=== PATIENT | male | born 1975 | race Hispanic/Latino ===

== ENCOUNTER 2019-10-04 17:26 | Emergency (ER) | payer MEDICAID | END 2019-10-04 18:41 | disposition home or self-care (01) | LOC: EDH 17:26 | DX: J20.9 Acute bronchitis, unspecified (principal); Z88.0 Allergy status to penicillin | CPT/HCPCS: 71046; 87804 ==

== ENCOUNTER 2021-10-01 17:03 | Emergency (ER) | payer MEDICAID ==
[~2021-10-01] VITALS: Ht 170.2 cm; Wt 65.8 kg
[2021-10-01 17:16] VITALS: BP 163/103
[2021-10-01 17:38] LABS: BASOPHILS % (AUTO) 1.7 % (0.0-5.0); EOSINOPHILS % (AUTO) 1.7 % (0.0-8.0); HEMATOCRIT 39.2 % (42-54); LYMPHOCYTES % (AUTO) 17.7 % (21.0-51.0); MEAN CORPUSCULAR HEMOGLOBIN 31.8 pg (27.0-33.0); MEAN CORPUSCULAR HGB CONC 34.2 g/dL (32.0-36.0); MEAN CORPUSCULAR VOLUME 93.1 fL (79-99); MONOCYTES % (AUTO) 11.2 % (3.0-13.0); NEUTROPHILS % (AUTO) 67.3 % (40.0-77.0); PLATELET COUNT (AUTO) 289 K/uL (130-400); RED BLOOD CELL COUNT(AUTO) 4.21 MIL/uL (4.50-6.20); RED CELL DISTRIBUTION WIDTH 13.2 % (11.0-15.5); WHITE BLOOD COUNT (AUTO) 4.6 K/uL (4.8-10.8)
[2021-10-01 17:53] LABS: CREATININE 0.8 mg/dL (0.5-1.5); POTASSIUM 3.6 mmol/L (3.5-5.1)
[2021-10-01 17:58] LABS: ALBUMIN 4.3 g/dL (3.5-5.0); BILIRUBIN,TOTAL 0.3 mg/dL (0.2-1.0); TOTAL PROTEIN, SERUM 8.4 g/dL (6.0-8.3)
[2021-10-01] MEDS ORDERED: ACET-66 PO (18:27)
== END 2021-10-01 18:37 | disposition home or self-care (01) ==
LOC: EDH 17:03
DX: S00.03XA Contusion of scalp, initial encounter (principal); S00.81XA Abrasion of other part of head, initial encounter; F10.20 Alcohol dependence, uncomplicated; W18.39XA Other fall on same level, initial encounter; Y93.89 Activity, other specified; Y92.89 Other specified places as the place of occurrence of the external cause; Y99.8 Other external cause status
CPT/HCPCS: 36415; 70450; 70486; 72125; 80053; 85025

== ENCOUNTER 2021-10-02 18:34 | Emergency (ER) | payer MEDICAID ==
[~2021-10-02] VITALS: Ht 165.1 cm; Wt 58.1 kg
[~2021-10-02 18:34] MED LIST: ACET-66 PO
[2021-10-02 20:03] VITALS: BP 135/70
== END 2021-10-02 20:06 | disposition home or self-care (01) ==
LOC: EDH 18:34
DX: S00.12XA Contusion of left eyelid and periocular area, initial encounter (principal); S00.83XA Contusion of other part of head, initial encounter; Z88.0 Allergy status to penicillin; W18.39XA Other fall on same level, initial encounter; Y93.89 Activity, other specified; Y92.89 Other specified places as the place of occurrence of the external cause; Y99.8 Other external cause status

== ENCOUNTER 2023-09-12 12:05 | Emergency (ER) | payer MEDICAID ==
[~2023-09-12] VITALS: Ht 165.1 cm; Wt 59.0 kg
[2023-09-12] MEDS ORDERED: ONDANSETRON 4MG INJ IVP ONE (14:30)
[2023-09-12 14:35] LABS: BASOPHILS # (AUTO) 0.03 K/uL (0.00-0.20); BASOPHILS % (AUTO) 0.4 % (0.0-5.0); HEMATOCRIT 41.6 % (42-54); IMMATURE GRANULOCYTE ABSOLUTE 0.03 K/uL (0-1); LYMPHOCYTES # (AUTO) 0.2 K/uL (1.0-4.8); LYMPHOCYTES % (AUTO) 2.6 % (21.0-51.0); MEAN CORPUSCULAR HEMOGLOBIN 31.2 pg (27.0-33.0); MEAN CORPUSCULAR HGB CONC 34.1 g/dL (32.0-36.0); MEAN CORPUSCULAR VOLUME 91.4 fL (79-99); MONOCYTES # (AUTO) 0.5 K/uL (0.1-1.0); MONOCYTES % (AUTO) 6.5 % (3.0-13.0); NEUTROPHILS # (AUTO) 6.9 K/uL (1.8-7.7); NEUTROPHILS % (AUTO) 90.1 % (40.0-77.0); PLATELET COUNT (AUTO) 273 K/uL (130-400); RED BLOOD CELL COUNT(AUTO) 4.55 MIL/uL (4.50-6.20); RED CELL DISTRIBUTION WIDTH 12.6 % (11.0-15.5); WHITE BLOOD COUNT (AUTO) 7.7 K/uL (4.8-10.8)
[2023-09-12 14:44] LABS: CARBON DIOXIDE 33 mmol/L (21-32); CHLORIDE 94 mmol/L (101-111); GLOMERULAR FILTR. RATE CALC 94 mL/min (>90); GLUCOSE,RANDOM 154 mg/dL (70-105); POTASSIUM 3.4 mmol/L (3.5-5.1); SODIUM SERUM 135 mmol/L (136-145); UREA NITROGEN, BLOOD 14 mg/dL (7-18)
[2023-09-12 14:48] LABS: ALANINE AMINOTRANSFERASE 84 U/L (12-78); ALBUMIN 4.6 g/dL (3.5-5.0); ALCOHOL, BLOOD < 3 mg/dL (0-10); ASPARTATE AMINOTRANSFERASE 70 U/L (10-37); BILIRUBIN,TOTAL 0.8 mg/dL (0.2-1.0); TOTAL PROTEIN, SERUM 9.3 g/dL (6.0-8.3)
[2023-09-12] MEDS ORDERED: KETOROLAC 15MG/ML VIAL (15MG/ML) IV ONE (15:30)
[2023-09-12] MEDS ORDERED: 0.9%NACL 1000ML 1,000 ML IV ONE (15:30)
[2023-09-12] MEDS ORDERED: FAMOTIDINE 20MG VIAL IV ONE (15:30)
[2023-09-12] MEDS ORDERED: PANTOPRAZOLE 40 MG/VIAL IVP ONE (15:30)
[2023-09-12] MEDS ORDERED: IOHEXOL-350 75 ML VIAL IV ONE (15:31)
[2023-09-12 16:23] LABS: APPEARANCE,URINE CLEAR (CLEAR); BILIRUBIN,URINE NEGATIVE (NEGATIVE); COLOR,URINE YELLOW (YELLOW); GLUCOSE, URINE (UA) NEGATIVE (NEGATIVE); KETONES,URINE 15 mg/dL (NEGATIVE); LEUKOCYTE ESTERASE ,URINE NEGATIVE Leu/uL (NEGATIVE); NITRATE,URINE NEGATIVE (NEGATIVE); OCCULT BLOOD,URINE TRACE-INTACT (NEGATIVE); PROTEIN,URINE 100 mg/dL (NEGATIVE); UROBILINOGEN,URINE 0.2 mg/dL (0.2-1.0)
[2023-09-12 16:27] LABS: ADD UA MICROSCOPIC YES
[2023-09-12 16:28] LABS: WBC,URINE 0-1 /HPF (0-1)
[2023-09-12 16:31] LABS: AMPHET/METH SCREEN,URINE NEGATIVE (NEGATIVE); BARBITURATE SCREEN, URINE NEGATIVE (NEGATIVE); BENZODIAZEPINES SCREEN,URINE NEGATIVE (NEGATIVE); CANNABINOID SCREEN,URINE NEGATIVE (NEGATIVE); COCAINE SCREEN,URINE NEGATIVE (NEGATIVE); OPIATE SCREEN,URINE NEGATIVE (NEGATIVE); PHENCYCLIDINE SCREEN,URINE NEGATIVE (NEGATIVE)
[2023-09-12] MEDS ORDERED: POTASSIUM BICARB/CIT AC 25 MEQ TABLET.EFF PO ONE (17:00)
[2023-09-12 17:21] VITALS: BP 126/78; PULSE 89; RESP 20; O2SAT 98
== END 2023-09-12 17:23 | disposition home or self-care (01) ==
LOC: EDH 12:05
DX: F10.20 Alcohol dependence, uncomplicated (principal); Y90.0 Blood alcohol level of less than 20 mg/100 ml; R10.12 Left upper quadrant pain; R10.13 Epigastric pain; R11.2 Nausea with vomiting, unspecified; Z88.0 Allergy status to penicillin
CPT/HCPCS: 99285; 74177; 96374; 96375; 96361; 80053; 80305; 82140; 83690; 85025; 81001; 36415; J7030; J2405; J1885; Q9967; S0028; S0164; C9113; J3490

== ENCOUNTER 2023-09-16 06:28 | Emergency (ER) | payer MEDICAID ==
[2023-09-16 07:55] LABS: BASOPHILS # (AUTO) 0.02 K/uL (0.00-0.20); BASOPHILS % (AUTO) 0.2 % (0.0-5.0); EOSINOPHILS # (AUTO) 0.01 K/uL (0.00-0.70); EOSINOPHILS % (AUTO) 0.1 % (0.0-8.0); IMMATURE GRANULOCYTE ABSOLUTE 0.05 K/uL (0-1); LYMPHOCYTES # (AUTO) 0.3 K/uL (1.0-4.8); LYMPHOCYTES % (AUTO) 2.3 % (21.0-51.0); MEAN CORPUSCULAR HGB CONC 35.3 g/dL (32.0-36.0); MEAN CORPUSCULAR VOLUME 90.7 fL (79-99); MONOCYTES # (AUTO) 1.1 K/uL (0.1-1.0); MONOCYTES % (AUTO) 8.8 % (3.0-13.0); NEUTROPHILS # (AUTO) 10.6 K/uL (1.8-7.7); NEUTROPHILS % (AUTO) 88.2 % (40.0-77.0); PLATELET COUNT (AUTO) 245 K/uL (130-400); RED BLOOD CELL COUNT(AUTO) 4.19 MIL/uL (4.50-6.20); RED CELL DISTRIBUTION WIDTH 12.4 % (11.0-15.5)
[2023-09-16 08:05] LABS: ALBUMIN 4.5 g/dL (3.5-5.0); CARBON DIOXIDE 29 mmol/L (21-32); CHLORIDE 95 mmol/L (101-111); CREATININE 1.4 mg/dL (0.5-1.5); GLOMERULAR FILTR. RATE CALC 63 mL/min (>90); GLUCOSE,RANDOM 80 mg/dL (70-105); SODIUM SERUM 133 mmol/L (136-145); UREA NITROGEN, BLOOD 29 mg/dL (7-18)
[2023-09-16 08:10] LABS: ALANINE AMINOTRANSFERASE 80 U/L (12-78); ASPARTATE AMINOTRANSFERASE 92 U/L (10-37); BILIRUBIN,TOTAL 1.2 mg/dL (0.2-1.0); TOTAL PROTEIN, SERUM 8.8 g/dL (6.0-8.3)
[2023-09-16 08:23] LABS: ALCOHOL, BLOOD < 3 mg/dL (0-10); POTASSIUM 2.7 mmol/L (3.5-5.1)
[2023-09-16 08:42] LABS: APPEARANCE,URINE CLOUDY (CLEAR); BILIRUBIN,URINE NEGATIVE (NEGATIVE); COLOR,URINE YELLOW (YELLOW); GLUCOSE, URINE (UA) NEGATIVE (NEGATIVE); KETONES,URINE 10 mg/dL (NEGATIVE); LEUKOCYTE ESTERASE ,URINE NEGATIVE Leu/uL (NEGATIVE); NITRATE,URINE NEGATIVE (NEGATIVE); OCCULT BLOOD,URINE SMALL (NEGATIVE); PROTEIN,URINE 70 mg/dL (NEGATIVE); UROBILINOGEN,URINE 0.2 mg/dL (0.2-1.0)
[2023-09-16 08:57] LABS: ADD UA MICROSCOPIC YES
[2023-09-16 08:58] LABS: MUCUS,URINE RARE LPF (None Seen); WBC,URINE 0-1 /HPF (0-1)
[2023-09-16] MEDS ORDERED: TETANUS/DIPHTHERIA TOXOID [ADULT] 0.5 ML VIAL IM ONE (09:00)
[2023-09-16] MEDS ORDERED: POTASSIUM BICARB/CIT AC 25 MEQ TABLET.EFF PO ONE (09:00)
[2023-09-16] MEDS ORDERED: LACTATED RINGERS 1000ML 1,000 ML IV ONE (09:00)
[2023-09-16 09:09] LABS: AMPHET/METH SCREEN,URINE NEGATIVE (NEGATIVE); BARBITURATE SCREEN, URINE NEGATIVE (NEGATIVE); BENZODIAZEPINES SCREEN,URINE NEGATIVE (NEGATIVE); CANNABINOID SCREEN,URINE NEGATIVE (NEGATIVE); COCAINE SCREEN,URINE NEGATIVE (NEGATIVE); OPIATE SCREEN,URINE NEGATIVE (NEGATIVE); PHENCYCLIDINE SCREEN,URINE NEGATIVE (NEGATIVE)
[2023-09-16] MEDS ORDERED: HYDROXYZINE 25 MG TABLET PO ONE (11:00)
[2023-09-16 11:02] LABS: CREATININE 1.2 mg/dL (0.5-1.5); POTASSIUM 3.4 mmol/L (3.5-5.1)
[2023-09-16] MEDS ORDERED: HYDR50CA50 PO (11:23)
[2023-09-16 11:41] VITALS: BP 127/77; PULSE 66; RESP 18; O2SAT 98
[2023-09-16] MEDS ORDERED: IBUP-2088 PO (20:52)
== END 2023-09-16 11:45 | disposition home or self-care (01) ==
LOC: EDH 06:28
DX: E87.6 Hypokalemia (principal); E86.0 Dehydration; R91.8 Other nonspecific abnormal finding of lung field; F10.20 Alcohol dependence, uncomplicated; Z88.0 Allergy status to penicillin
CPT/HCPCS: 99285; 99283; 70450; 96360; 71045; 83735; 80053; 80305; 85025; 36415; 90714; 73630; 72170; 72125; 90471; 80048; 81001; J7120

== ENCOUNTER 2023-09-16 19:30 | Emergency (ER) | payer MEDICAID ==
[~2023-09-16] VITALS: Ht 154.9 cm; Wt 56.7 kg
[~2023-09-16 19:30] MED LIST changes: +HYDR50CA50 PO
[2023-09-16 20:49] VITALS: BP 126/84; PULSE 78; RESP 16; O2SAT 100
[2023-09-16] MEDS ORDERED: IBUP-2088 PO (20:52)
== END 2023-09-16 20:57 | disposition home or self-care (01) ==
LOC: EDH 19:30
DX: S90.32XA Contusion of left foot, initial encounter (principal); F20.9 Schizophrenia, unspecified; F41.9 Anxiety disorder, unspecified; Z88.0 Allergy status to penicillin; W01.0XXA Fall on same level from slipping, tripping and stumbling without subsequent striking against object, initial encounter; Y93.89 Activity, other specified; Y92.89 Other specified places as the place of occurrence of the external cause; Y99.8 Other external cause status
CPT/HCPCS: 73630

== ENCOUNTER 2024-03-11 18:18 | Emergency (ER) | payer MEDICAID ==
[~2024-03-11] VITALS: Ht 162.6 cm; Wt 63.5 kg
[~2024-03-11 18:18] MED LIST changes: +IBUP-2088 PO
[2024-03-11 18:34] VITALS: BP 132/88; PULSE 90; RESP 18; O2SAT 98
[2024-03-11 18:43] LABS: APPEARANCE,URINE CLEAR (CLEAR); BILIRUBIN,URINE NEGATIVE (NEGATIVE); COLOR,URINE COLORLESS (YELLOW); GLUCOSE, URINE (UA) NEGATIVE (NEGATIVE); KETONES,URINE NEGATIVE (NEGATIVE); LEUKOCYTE ESTERASE ,URINE NEGATIVE Leu/uL (NEGATIVE); NITRATE,URINE NEGATIVE (NEGATIVE); OCCULT BLOOD,URINE NEGATIVE (NEGATIVE); PH,URINE 5.5 (5.0-8.0); PROTEIN,URINE NEGATIVE (NEGATIVE); UROBILINOGEN,URINE 0.2 mg/dL (0.2-1.0)
[2024-03-11 18:44] LABS: ADD UA MICROSCOPIC YES
[2024-03-11 18:45] LABS: WBC,URINE 0-1 /HPF (0-1)
[2024-03-11 18:51] LABS: AMPHET/METH SCREEN,URINE NEGATIVE (NEGATIVE); BARBITURATE SCREEN, URINE NEGATIVE (NEGATIVE); BENZODIAZEPINES SCREEN,URINE NEGATIVE (NEGATIVE); CANNABINOID SCREEN,URINE NEGATIVE (NEGATIVE); COCAINE SCREEN,URINE NEGATIVE (NEGATIVE); OPIATE SCREEN,URINE NEGATIVE (NEGATIVE); PHENCYCLIDINE SCREEN,URINE NEGATIVE (NEGATIVE)
[2024-03-11 18:52] LABS: BASOPHILS # (AUTO) 0.05 K/uL (0.00-0.20); BASOPHILS % (AUTO) 0.9 % (0.0-5.0); EOSINOPHILS # (AUTO) 0.39 K/uL (0.00-0.70); EOSINOPHILS % (AUTO) 6.7 % (0.0-8.0); HEMATOCRIT 41.7 % (42-54); IMMATURE GRANULOCYTE ABSOLUTE 0.01 K/uL (0-1); LYMPHOCYTES # (AUTO) 1.5 K/uL (1.0-4.8); LYMPHOCYTES % (AUTO) 26.5 % (21.0-51.0); MEAN CORPUSCULAR HGB CONC 35.5 g/dL (32.0-36.0); MEAN CORPUSCULAR VOLUME 84.6 fL (79-99); MONOCYTES # (AUTO) 0.5 K/uL (0.1-1.0); MONOCYTES % (AUTO) 7.9 % (3.0-13.0); NEUTROPHILS # (AUTO) 3.4 K/uL (1.8-7.7); NEUTROPHILS % (AUTO) 57.8 % (40.0-77.0); PLATELET COUNT (AUTO) 377 K/uL (130-400); RED BLOOD CELL COUNT(AUTO) 4.93 MIL/uL (4.50-6.20); RED CELL DISTRIBUTION WIDTH 12.5 % (11.0-15.5); WHITE BLOOD COUNT (AUTO) 5.8 K/uL (4.8-10.8)
[2024-03-11 19:06] LABS: CARBON DIOXIDE 32 mmol/L (21-32); CHLORIDE 101 mmol/L (101-111); CREATININE 0.8 mg/dL (0.5-1.3); GLOMERULAR FILTR. RATE CALC 110 mL/min (>90); GLUCOSE,RANDOM 123 mg/dL (70-105); POTASSIUM 3.7 mmol/L (3.5-5.1); SODIUM SERUM 141 mmol/L (136-145); UREA NITROGEN, BLOOD 8 mg/dL (7-18)
[2024-03-11 19:11] LABS: ACETAMINOPHEN < 1 mcg/mL (10-29); ALANINE AMINOTRANSFERASE 20 U/L (12-78); ALCOHOL, BLOOD 227 mg/dL (0-10); BILIRUBIN,TOTAL 0.2 mg/dL (0.2-1.0); SALICYLATE < 2.8 mg/dL (2.8-20.0); TOTAL PROTEIN, SERUM 8.4 g/dL (6.0-8.3)
[2024-03-11 19:36] LABS: ASPARTATE AMINOTRANSFERASE 17 U/L (10-37)
== END 2024-03-11 19:07 | disposition left against medical advice (07) ==
LOC: EDH 18:18
DX: F10.129 Alcohol abuse with intoxication, unspecified (principal); Z88.0 Allergy status to penicillin; Y90.7 Blood alcohol level of 200-239 mg/100 ml
CPT/HCPCS: 99281; 80053; 80305; 85025; 36415; 81001; G0481

== ENCOUNTER 2024-09-03 22:33 | Emergency (ER) | payer MEDICAID ==
[~2024-09-03] VITALS: Ht 165.1 cm; Wt 59.0 kg
--- NOTE | 2024-09-03 22:45 | NUR ---
PATIENT SENT FROM [facility] FOR MEDICAL CLEARANCE. PER [facility] THE PATIENT HAD JUST ARRIVED AT THEIR FACILITY AND WAS BEING SENT OVER DUE TO ALCOHOL INTOXICATION AND NEEDED MEDICAL CLEARANCE.
[2024-09-03 23:31] LABS: BASOPHILS # (AUTO) 0.04 K/uL (0.00-0.20); EOSINOPHILS # (AUTO) 0.21 K/uL (0.00-0.70); EOSINOPHILS % (AUTO) 5.2 % (0.0-8.0); HEMATOCRIT 43.1 % (42-54); IMMATURE GRANULOCYTE ABSOLUTE 0.01 K/uL (0-1); LYMPHOCYTES # (AUTO) 1.2 K/uL (1.0-4.8); LYMPHOCYTES % (AUTO) 30.8 % (21.0-51.0); MEAN CORPUSCULAR HEMOGLOBIN 29.9 pg (27.0-33.0); MEAN CORPUSCULAR HGB CONC 34.1 g/dL (32.0-36.0); MEAN CORPUSCULAR VOLUME 87.8 fL (79-99); MONOCYTES # (AUTO) 0.5 K/uL (0.1-1.0); MONOCYTES % (AUTO) 12.4 % (3.0-13.0); NEUTROPHILS % (AUTO) 50.4 % (40.0-77.0); PLATELET COUNT (AUTO) 292 K/uL (130-400); RED BLOOD CELL COUNT(AUTO) 4.91 MIL/uL (4.50-6.20); RED CELL DISTRIBUTION WIDTH 12.8 % (11.0-15.5)
[2024-09-04 00:01] LABS: CARBON DIOXIDE 29 mmol/L (21-32); CHLORIDE 97 mmol/L (101-111); GLOMERULAR FILTR. RATE CALC 93 mL/min (>90); GLUCOSE,RANDOM 148 mg/dL (70-105); POTASSIUM 3.3 mmol/L (3.5-5.1); SODIUM SERUM 136 mmol/L (136-145); UREA NITROGEN, BLOOD 5 mg/dL (7-18)
[2024-09-04 00:07] LABS: ALCOHOL, BLOOD 300 mg/dL (0-10); SALICYLATE < 2.8 mg/dL (2.8-20.0)
[2024-09-04 00:08] LABS: ACETAMINOPHEN < 1 mcg/mL (10-29)
--- NOTE | 2024-09-04 00:12 | NUR ---
SNACK GIVEN TO PATIENT
[2024-09-04 00:48] LABS: AMPHET/METH SCREEN,URINE NEGATIVE (NEGATIVE); BARBITURATE SCREEN, URINE NEGATIVE (NEGATIVE); BENZODIAZEPINES SCREEN,URINE NEGATIVE (NEGATIVE); CANNABINOID SCREEN,URINE NEGATIVE (NEGATIVE); COCAINE SCREEN,URINE NEGATIVE (NEGATIVE); OPIATE SCREEN,URINE NEGATIVE (NEGATIVE); PHENCYCLIDINE SCREEN,URINE NEGATIVE (NEGATIVE)
--- NOTE | 2024-09-04 00:51 | ERN ---
ED Note History of Present Illness Stated Complaint: MEDICAL CLEARANCE, HEARING VOICES Chief Complaint: Psych Evaluation Time Seen by MD: 00:27 Dictation: Mr. Sepulveda is a 48-year-old male who was brought into the emergency room for medical clearance for a behavioral health evaluation. Apparently patient started having auditory hallucinations and he started hearing foot steps chasing him. He could not sleep and he is also started hearing noises. He is a daily drinker and has a history of alcoholism and he was sent to ED for medical cl earance. Patient very intoxicated and lethargic most of the information has been obtained from nursing and EMS reports Temperature 98 pulse 105 respirations 20 blood pressure 145/81 with a pulse oximetry of 98% on room air Allergies: Coded Allergies: Penicillins (Unverified Allergy, Unknown, 10/02/21) Home Meds Active Scripts Ibuprofen (Motrin/Advil) 600 Mg Tab, 600 MG PO TIDP PRN for PAIN, #30 TAB Prov:BALBINA LAW MD 09/16/23 Hydroxyzine Pamoate (Hydroxyzine Pamoate) 50 Mg Capsule, 50 MG PO QIDP PRN for ANXIETY/AGITATION, #30 CAP 2 Refills Prov:ROSELYN BUTT Sr., MD 09/16/23 Acetaminophen (Tylenol) 500 Mg Tab, 500 MG PO Q6HPRN PRN for PAIN LEVEL 7 TO 10, #30 TAB Prov:JEOVANY BRADLEY MD 10/01/21 Past Medical History Past Medical History: No Pertinent History Surgical History: None Family History: Negative Social History: ETOH RN Note Reviewed/Agreed w/[facility]: Yes Review of System Dictation Unable to obtain as patient is very lethargic and sleeping Initial Vital Sign VS Vital Signs Date Time Temp Pulse Resp B/P (MAP) Pulse Ox O2 Delivery O2 Flow Rate FiO2 09/03/24 22:40 98.1 105 20 145/81 98 Room Air 0 09/03/24 22:46 21 Physical Exam Dictation General: Resting but arousable, NAD unkempt disheveled, alcohol breath Head/Face: Normocephalic, atraumatic Eyes: PERRL, EOMI, vision at baseline ENT: oral cavity clear, TMs clear, no signs of infection Neck: Trachea midline, supple, no nuchal rigidity Cardiovascular: RRR, normal S1/S2, No MRGs, no JVD Respiratory: CTAB, no respiratory distress, No rales or wheezes Abdomen: Soft, non-tender, non-distended, normal bowel sounds, no guarding or rebound. Skin: Warm, dry, normal turgor, no rash MS/Extremity: Pulses equal, no cyanosis, neurovascular intact, FROM Neuro: COAx4, GCS 15, strength 5/5, CN 2-12 intact, normal cerebellar exam, normal gait, Psych: Normal behavior, mood, and affect normal Extremities-trace edema without any palpable cords, Homans sign is negative Results (Laboratory/Radiology) Laboratory/Radiology Laboratory Tests Test 09/03/24 23:22 09/04/24 00:07 09/04/24 08:11 White Blood Count 4.0 K/uL (4.8-10.8) L Red Blood Count 4.91 MIL/uL (4.50-6.20) Hemoglobin 14.7 g/dL (14.0-18.0) Hematocrit 43.1 % (42-54) Mean Corpuscular Volume 87.8 fL (79-99) Mean Corpuscular Hemoglobin 29.9 pg (27.0-33.0) Mean Corpuscular Hemoglobin Concent 34.1 g/dL (32.0-36.0) Red Cell Distribution Width 12.8 % (11.0-15.5) Platelet Count 292 K/uL (130-400) Mean Platelet Volume 8.3 fL (7.5-10.5) Immature Granulocyte % (Auto) 0.2 % (0-1) Neutrophils (%) (Auto) 50.4 % (40.0-77.0) Lymphocytes (%) (Auto) 30.8 % (21.0-51.0) Monocytes (%) (Auto) 12.4 % (3.0-13.0) Eosinophils (%) (Auto) 5.2 % (0.0-8.0) Basophils (%) (Auto) 1.0 % (0.0-5.0) Neutrophils # (Auto) 2.0 K/uL (1.8-7.7) Lymphocytes # (Auto) 1.2 K/uL (1.0-4.8) Monocytes # (Auto) 0.5 K/uL (0.1-1.0) Eosinophils # (Auto) 0.21 K/uL (0.00-0.70) Basophils # (Auto) 0.04 K/uL (0.00-0.20) Absolute Immature Granulocyte (auto 0.01 K/uL (0-1) Nucleated Red Blood Cells 0.0 % (0.0-0.19) Sodium Level 136 mmol/L (136-145) Potassium Level 3.3 mmol/L (3.5-5.1) L Chloride Level 97 mmol/L (101-111) L Carbon Dioxide Level 29 mmol/L (21-32) Blood Urea Nitrogen 5 mg/dL (7-18) L Creatinine 1.0 mg/dL (0.5-1.3) Glomerular Filtration Rate Calc 93 mL/min (>90) Random Glucose 148 mg/dL (70-105) H Total Calcium 9.3 mg/dL (8.5-10.1) Salicylates Level < 2.8 mg/dL (2.8-20.0) L Acetaminophen Level < 1 mcg/mL (10-29) L Serum Alcohol 300 mg/dL (0-10) H 70 mg/dL (0-10) H Urine Opiates Screen NEGATIVE (NEGATIVE) Urine Barbiturates Screen NEGATIVE (NEGATIVE) Urine Phencyclidine Screen NEGATIVE (NEGATIVE) Urine Amphetamines Screen NEGATIVE (NEGATIVE) Urine Benzodiazepines Screen NEGATIVE (NEGATIVE) Urine Cocaine Screen NEGATIVE (NEGATIVE) Urine Marijuana (THC) Screen NEGATIVE (NEGATIVE) Labs Reviewed?: Yes ED Course ED Course Orders Procedure Category Date Status Time Vital Signs Per CPOE 09/03/24 Transmitted Routine 22:52 Cardiac Monitoring CPOE 09/03/24 Transmitted 22:52 Pulse Ox(Continuous) RT 09/03/24 Transmitted 22:52 Bedside Glucose CPOE 09/03/24 Transmitted Fingerstick 22:52 Suicide Precautions CPOE 09/03/24 Transmitted 22:52 Cath If Unable To CPOE 09/03/24 Transmitted Void In 6hr 22:52 Saline Lock Iv CPOE 09/03/24 Transmitted 22:52 Cbc With Differential LAB 09/03/24 Complete 22:52 Alcohol, Blood LAB 09/03/24 Complete 22:52 Salicylate LAB 09/03/24 Complete 22:52 Acetaminophen LAB 09/03/24 Complete 22:52 Basic Metabolic Panel LAB 09/03/24 Complete 22:52 Drug Screen Urine LAB 10/14/24 Complete 22:52 M.V.I. Iv [Adult] PHA 09/04/24 Complete (M.V.I. Iv [Adult])... 00:30 Regular DIET 09/04/24 Complete Breakfast Alcohol, Blood LAB 09/04/24 Complete 07:20 Regular DIET 09/04/24 Transmitted Lunch Current Medications Medications (Trade) Dose Ordered Sig/J Luis Route PRN Reason Start Time Stop Time Status Last Admin Dose Admin Multivitamins/ Minerals 10 ml/ Folic Acid 1 mg/ Thiamine HCl 100 mg/Sodium Chloride 1,010 ml @ 0 mls/hr ONCE ONCE IV 09/04/24 00:30 09/04/24 00:35 DC 09/04/24 01:18 Vital Signs Date Time Temp Pulse Resp B/P (MAP) Pulse Ox O2 Delivery O2 Flow Rate FiO2 09/04/24 05:19 97.9 88 16 132/78 97 Room Air* 0 21 09/04/24 01:00 98.1 92 18 138/82 98 Room Air* 0 21 09/03/24 22:46 98.1 105 20 145/81 98 Room Air* 0 21 09/03/24 22:40 98.1 105 20 145/81 98 Room Air 0 We will perform diagnostic labs, and administer medications according to the patient's complaint. Once the results are available, will review and personally interpreted the labs to rule out any acute life-threatening emergency the trach require immediate intervention and treatment. I will then re-evaluate the patient after treatment and diagnostic exams have return to determine whether the patient requires any further testing, can safely be discharged home or need further admission to hospital for additional treatment and evaluation. Labs reviewed CBC showed a white count of 4000, BNP 7 showed a potassium of 3.3. Urine drug screen is negative serum tox levels showed an alcohol -300. Banana bag and fluids requested. Once the alcohol clears from his system and the repeat levels trend down, we will evaluate him medically Medical Decision Making MDM MDM: Differential diagnosis: Alcohol abuse, insomnia, hallucinations Previous outside records reviewed: Old ER visits. Need for hospitalization: Patient does not meet criteria for hospitalization. Need for emergency major/minor surgery: No Patient's prior external medical records from other ER visits were reviewed by me as indicated. Prior testing and results from previous visits were reviewed. Prior tests were taken into account with medical decision making and resource utilization, independent historian/historians were used to obtain complete medical history. I independently interpreted the test that were performed, results were reviewed by me and considered findings on radiology if ordered. Medical management and examination interpretation discussions were had by me with other qualified healthcare professionals as indicated for the patient's care. 1225- patient does not meet inpatient psychiatric criteria. Patient will be discharged Problem List Problem List: (1) Alcoholic psychosis (2) Alcohol intoxication (3) Alcohol dependence DX & DISP Disposition: Discharge Departure Impression: Primary Impression: Alcohol dependence Additional Impressions: Alcohol intoxication, Hypokalemia, Alcoholic psychosis Condition: Stable Referrals: ANGELES SIMMONS MD (PCP) Time of Disposition: 12:39 I have reviewed, & agreed with my scribe's, documentation. (Entered by Amy laughlin, acting as a scribe for Dr. Keller) I personally scribed for VIVI MCKOY MD ([email or web address]) on 09/04/24 at 12:29. Electronically submitted by Amy Hawkins ([email or web address]). VIVI MCKOY MD Sep 04, 2024 00:51 ADONAY KELLER MD Sep 04, 2024 12:40
[2024-09-04] MEDS: M.V.I. IV [ADULT] 10 ML, FOLic ACID 5 MG/ML VIAL 1 MG, THIAMINE HCL 100 MG in 0.9%NACL ... IV ONE (01:18)
[2024-09-04 05:19] VITALS: BP 132/78; PULSE 88; RESP 16; TEMP 97.8; O2SAT 97
--- NOTE | 2024-09-04 09:24 | NUR ---
PT MEDICAL CLEARANCE AT THIS TIME, CALLED PLACED TO [facility] FOR SCREENING, SPOKE TO MADHURI.
== END 2024-09-04 13:10 | disposition home or self-care (01) ==
LOC: EDH 22:33
DX: F10.959 Alcohol use, unspecified with alcohol-induced psychotic disorder, unspecified (principal); E87.6 Hypokalemia; Z88.0 Allergy status to penicillin; Y90.3 Blood alcohol level of 60-79 mg/100 ml
CPT/HCPCS: 99284; 80048; 80305; 85025; 36415 ×2; 96365; G0481; J7030; J3411; J3490

== ENCOUNTER 2024-12-17 19:48 | Emergency (ER) | payer MEDICAID ==
[~2024-12-17] VITALS: Ht 165.1 cm; Wt 59.0 kg
[2024-12-17 19:50] VITALS: BP 164/89; PULSE 73; RESP 16; TEMP 98.1
--- NOTE | 2024-12-17 20:25 | ERN ---
General Chief Complaint: Abdominal Pain Stated Complaint: ABDOMINAL PAIN LLQ SINCE 2 PM Time Seen by MD: 19:54 Source: patient History of Present Illness Initial Comments Patient is a 48-year-old male coming in with lower left quadrant pain. Per patient the pain began earlier today. He states that the pain is 8/10 intensity and sharp without radiation. He states he was never had pain like this before he also states he has no past medical history. Allergies: Coded Allergies: Penicillins (Unverified Allergy, Unknown, 10/02/21) Home Meds Active Scripts Lactobacillus Acidophilus (Acidophilus Probiotic) 500 Million Cell Capsule, 1 CAP PO BID for 7 Days, #14 CAP 0 Refills Prov:MARY TODD MD 12/17/24 Pantoprazole Sodium (Protonix) 40 Mg Ectab, 1 TAB PO DAILY for 30 Days, #30 TAB 0 Refills Prov:MARY TODD MD 12/17/24 Ibuprofen (Motrin/Advil) 600 Mg Tab, 600 MG PO TIDP PRN for PAIN, #30 TAB Prov:BALBINA LAW MD 09/16/23 Hydroxyzine Pamoate (Hydroxyzine Pamoate) 50 Mg Capsule, 50 MG PO QIDP PRN for ANXIETY/AGITATION, #30 CAP 2 Refills Prov:ROSELYN BUTT Sr., MD 09/16/23 Acetaminophen (Tylenol) 500 Mg Tab, 500 MG PO Q6HPRN PRN for PAIN LEVEL 7 TO 10, #30 TAB Prov:JEOVANY BRADLEY MD 10/01/21 Past Medical History Past Medical History: No Pertinent History Past Surgical History: None Family History Family History: Negative Social History Social History: ETOH ROS Dictation CONSTITUTIONAL: No chills, no fever, no weakness, no diaphoresis, no malaise. HEAD/FACE: No signs of trauma. EENT: No eye pain, no blurred vision, no tearing, no double vision, no ear pain, no ear discharge, no nose pain, no nasal congestion, no throat pain, no throat swelling, no mouth pain. RESPIRATORY: No cough, no orthopnea, no SOB, no stridor, no wheezing. CARDIOVASCULAR: No chest pain, no edema, no palpitations, no syncope. GASTROINTESTINAL/ABDOMINAL: abdominal pain, no constipation, no diarrhea, no nausea, no vomiting. GENITOURINARY: No abnormal discharge, no dysuria, no frequent urination, no hematuria. No complaints of pain in the genitals. MUSCULOSKELETAL: No back pain, no gout, no joint pain, no joint swelling, no muscle pain, no muscle stiffness, no neck pain. INTEGUMENTARY: No change in color, no change in hair/nails, no dryness, no lesion, no lumps, no rash. NEUROLOGICAL/PSYCH: No anxiety, not depressed, no emotional problem, no headache, no numbness, no pre-existing deficit, no history of seizures, no tremors, no weakness. HEMATOLOGIC/LYMPHATIC: Not anemic, no history of blood clots, no apparent bleeding, no bruising, glands not swollen. All Systems Negative, Except as Noted. Physical Exam Physical Exam Dictation VITAL SIGNS: Reviewed. GENERAL APPEARANCE: Alert, oriented x3, no acute distress, obese. HEAD AND FACE: Non-traumatic. EYES: PERRL, pink conjunctivas, eyelid no trauma, anterior chamber clear. EARS: Pinnas intact and no signs of trauma or erythema. Ear canals clear and no discharge. TMs no erythema. NOSE: No discharge, no bleeding. OROPHARYNX: Mouth normal, teeth no caries, tongue pink. Pharynx clear, no erythema. Tonsils no exudates, no abscesses noted. Mucous membrane moist. NECK: Supple, non-tender, no thyromegaly, no masses, no JVD, no bruits. BREAST: Deferred. CHEST: No tenderness, no crepitus, no paradoxical movement, no retractions. LUNGS: Clear, well-ventilated, symmetric, no rales, no wheezing, no rhonchi, no stridor, good breath sounds bilaterally. HEART: Regular rate, regular rhythm, no murmur, no gallops. VASCULAR: No peripheral edema. ABDOMEN: Soft, positive bowel sounds, nondistended, no guarding, left lower quadrant tender, no rebound, no masses no hepatomegaly, no splenomegaly, no Gary's sign, no hernias. RECTAL: Deferred. GENITAL: Deferred. NEUROLOGICAL: Normal speech, gross motor function intact, gross sensory function intact. MUSCULOSKELETAL: Neck nontender, full range of motion, back nontender, full range of motion. EXTREMITIES: Nontender, full range of motion. SKIN: Color pink, dry, no turgor, no rash, no lacerations, no abrasions, no contusions. LYMPHATICS: Deferred. Results Laboratory and Microbiology Lab and Micro Result Laboratory Tests Test 12/17/24 20:24 White Blood Count 3.5 K/uL (4.8-10.8) L Red Blood Count 4.36 MIL/uL (4.50-6.20) L Hemoglobin 13.4 g/dL (14.0-18.0) L Hematocrit 38.4 % (42-54) L Mean Corpuscular Volume 88.1 fL (79-99) Mean Corpuscular Hemoglobin 30.7 pg (27.0-33.0) Mean Corpuscular Hemoglobin Concent 34.9 g/dL (32.0-36.0) Red Cell Distribution Width 13.5 % (11.0-15.5) Platelet Count 222 K/uL (130-400) Mean Platelet Volume 8.5 fL (7.5-10.5) Immature Granulocyte % (Auto) 0.3 % (0-1) Neutrophils (%) (Auto) 77.9 % (40.0-77.0) H Lymphocytes (%) (Auto) 8.0 % (21.0-51.0) L Monocytes (%) (Auto) 12.9 % (3.0-13.0) Eosinophils (%) (Auto) 0.3 % (0.0-8.0) Basophils (%) (Auto) 0.6 % (0.0-5.0) Neutrophils # (Auto) 2.7 K/uL (1.8-7.7) Lymphocytes # (Auto) 0.3 K/uL (1.0-4.8) L Monocytes # (Auto) 0.5 K/uL (0.1-1.0) Eosinophils # (Auto) 0.01 K/uL (0.00-0.70) Basophils # (Auto) 0.02 K/uL (0.00-0.20) Absolute Immature Granulocyte (auto 0.01 K/uL (0-1) Nucleated Red Blood Cells 0.0 % (0.0-0.19) White Cell Morphology Comment See comments Sodium Level 134 mmol/L (136-145) L Potassium Level 3.5 mmol/L (3.5-5.1) Chloride Level 96 mmol/L (101-111) L Carbon Dioxide Level 28 mmol/L (21-32) Blood Urea Nitrogen 11 mg/dL (7-18) Creatinine 0.8 mg/dL (0.5-1.3) Glomerular Filtration Rate Calc 110 mL/min (>90) Random Glucose 103 mg/dL (70-105) Total Calcium 8.9 mg/dL (8.5-10.1) Labs Reviewed?: Yes EKG/XRAY/US/CT/MRI CT Scan Comment [facility] [address] [place] [address] IMAGING REPORT Signed PATIENT: HOOD COOK MR#: [id number] : 1975 SEX: M AGE: 48 LOCATION: ED ORDER 15 STATUS: REG ER REPORT#: [id number] SERVICE 14 REASON: ABD PAIN ORDERING PHYSICIAN: MARY TODD MD PROCEDURE: ABD PEL WO - CT ABDOMEN/PELVIS W/O CONTRAST CT ABDOMEN/PELVIS W/O CONTRAST INDICATION: ABD PAIN TECHNIQUE: CT ABDOMEN/PELVIS W/O CONTRAST. Oral contrast was not given. Coronal and sagittal reformats were performed. CT was performed with one or more of the following dose reduction techniques: Automated exposure control, adjustment of the mA and/or kV according to the patient's size, or use of the iterative reconstruction technique. Comparison: 09/12/2023 FINDINGS: The noncontrast nature this study limits evaluation of abdominal viscera. No pulmonary consolidation or pleural effusion is seen. There is hepatic steatosis. No calcified gallstone is seen. There is a small hiatal hernia. The spleen, pancreas, and adrenal glands are within normal limits. No hydronephrosis. The urinary bladder is partially collapsed. Questionable scattered punctate intrarenal calculi. Reproductive organs are grossly within normal limits for patient's age. Fluid-filled loops of small bowel and colon suggesting enterocolitis in the proper clinical setting. Scattered diverticulosis coli without evidence of acute diverticulitis. No bowel obstruction is seen. Appendix is normal in caliber. Visualized aorta is normal in caliber. No acute osseous findings. IMPRESSION: 1. Fluid-filled loops of small bowel and colon suggesting enterocolitis in the proper clinical setting. 2. Scattered diverticulosis coli without evidence of acute diverticulitis. No bowel obstruction is seen. DICTATED BY: CHRISTINA COWART MD DATE: 12/17/242113 ELECTRONICALLY SIGNED BY: CHRISTINA COWART MD DATE: 12/17/242117 [facility] MDM: Differential diagnosis: Gastroenteritis, abdominal discomfort, Patient is a 48-year-old male coming in to be evaluated for left lower quadrant pain. CT of the abdomen did not disclose acute findings. Laboratory workup negative for acute findings. Only findings per imaging study was a fluid-filled colon suggestive of gastroenteritis. I have advised patient diet modification and I will prescribe him some symptomatic medication for abdominal discomfort. ED Course Orders Procedure Category Date Status Time Cbc With Differential LAB 12/17/24 Complete 20:15 Urinalysis Profile LAB 12/17/24 Logged 20:15 Lactated Ringers PHA 12/17/24 Complete 1000ml (Lactated 20:30 Pantoprazole 40mg Inj PHA 12/17/24 Complete (Protonix 40mg Inj 20:30 Ct Abdomen/Pelvis W/O CT 12/17/24 Resulted Contrast 20:15 Basic Metabolic Panel LAB 12/17/24 Complete 20:15 Current Medications Medications (Trade) Dose Ordered Sig/J Luis Route PRN Reason Start Time Stop Time Status Last Admin Dose Admin Lactated Ringer's 1,000 ml @ 0 mls/hr ONCE ONCE IV 12/17/24 20:30 12/17/24 20:31 DC Pantoprazole Sodium (PROTonix 40MG INJ) 40 mg ONCE ONCE IVP 12/17/24 20:30 12/17/24 20:31 DC Vital Signs Date Time Temp Pulse Resp B/P (MAP) Pulse Ox O2 Delivery O2 Flow Rate FiO2 12/17/24 19:50 98.1 73 16 164/89 99 Room Air 0 DX & DISP Disposition: Discharge Departure Impression: Primary Impression: Viral gastroenteritis Condition: Stable Scripts Lactobacillus Acidophilus (Acidophilus Probiotic) 500 Million Cell Capsule 1 CAP PO BID for 7 Days, #14 CAP 0 Refills Prov: MARY TODD MD 12/17/24 Pantoprazole Sodium (Protonix) 40 Mg Ectab 1 TAB PO DAILY for 30 Days, #30 TAB 0 Refills Prov: MARY TODD MD 12/17/24 Additional Instructions: FOLLOW-UP WITH PRIMARY CARE PROVIDER IN 1 TO 2 DAYS. TAKE MEDICATIONS DIRECTED HERE IN THE EMERGENCY ROOM. OKAY TO CONTINUE HOME MEDICATIONS UNLESS OTHERWISE DISCUSSED DURING YOUR VISIT IN THE EMERGENCY ROOM TODAY. RETURN TO YOUR NEAREST EMERGENCY ROOM IF SYMPTOMS WORSEN OR IF THERE IS NO IMPROVEMENT. CALL 911 IF YOU NEED IMMEDIATE ASSISTANCE. TAKE TYLENOL [id number] NEEDED AND IF NO CONTRAINDICATIONS ARE PRESENT. INCREASE ORAL HYDRATION. A WOUND CULTURE OR URINE CULTURE WAS ORDERED HERE IN THE EMERGENCY ROOM DEPARTMENT PLEASE FOLLOW-UP WITH PRIMARY CARE PROVIDER AND ADVISE THEM TO GET REPEAT PORTS FROM OUR FACILITY. IF YOU HAD ANY CARLITOS WRAP/SPLINTS THAT WERE APPLIED HERE, PLEASE DO NOT REMOVE THEM UNTIL YOU SEE YOUR PRIMARY CARE OR SPECIALTY. Referrals: Referrals: ANGELES SIMMONS MD (PCP) Time of Disposition: 21:47 MARY TODD MD Dec 17, 2024 20:24
[2024-12-17] MEDS ORDERED: LACTATED RINGERS 1000ML 1,000 ML IV ONE (20:30)
[2024-12-17] MEDS ORDERED: PANTOPrazole 40 MG/VIAL IVP ONE (20:30)
[2024-12-17 20:31] LABS: BASOPHILS # (AUTO) 0.02 K/uL (0.00-0.20); BASOPHILS % (AUTO) 0.6 % (0.0-5.0); EOSINOPHILS # (AUTO) 0.01 K/uL (0.00-0.70); EOSINOPHILS % (AUTO) 0.3 % (0.0-8.0); HEMATOCRIT 38.4 % (42-54); IMMATURE GRANULOCYTE ABSOLUTE 0.01 K/uL (0-1); LYMPHOCYTES # (AUTO) 0.3 K/uL (1.0-4.8); MEAN CORPUSCULAR HEMOGLOBIN 30.7 pg (27.0-33.0); MEAN CORPUSCULAR HGB CONC 34.9 g/dL (32.0-36.0); MEAN CORPUSCULAR VOLUME 88.1 fL (79-99); MONOCYTES # (AUTO) 0.5 K/uL (0.1-1.0); MONOCYTES % (AUTO) 12.9 % (3.0-13.0); NEUTROPHILS # (AUTO) 2.7 K/uL (1.8-7.7); NEUTROPHILS % (AUTO) 77.9 % (40.0-77.0); PLATELET COUNT (AUTO) 222 K/uL (130-400); RED BLOOD CELL COUNT(AUTO) 4.36 MIL/uL (4.50-6.20); RED CELL DISTRIBUTION WIDTH 13.5 % (11.0-15.5); WHITE BLOOD COUNT (AUTO) 3.5 K/uL (4.8-10.8)
[2024-12-17 20:39] LABS: CREATININE 0.8 mg/dL (0.5-1.3); POTASSIUM 3.5 mmol/L (3.5-5.1)
--- NOTE | 2024-12-17 21:18 | HMCIMG ---
CT ABDOMEN/PELVIS W/O CONTRAST INDICATION: ABD PAIN TECHNIQUE: CT ABDOMEN/PELVIS W/O CONTRAST. Oral contrast was not given. Coronal and sagittal reformats were performed. CT was performed with one or more of the following dose reduction techniques: Automated exposure control, adjustment of the mA and/or kV according to the patient's size, or use of the iterative reconstruction technique. Comparison: 09/12/2023 FINDINGS: The noncontrast nature this study limits evaluation of abdominal viscera. No pulmonary consolidation or pleural effusion is seen. There is hepatic steatosis. No calcified gallstone is seen. There is a small hiatal hernia. The spleen, pancreas, and adrenal glands are within normal limits. No hydronephrosis. The urinary bladder is partially collapsed. Questionable scattered punctate intrarenal calculi. Reproductive organs are grossly within normal limits for patient's age. Fluid-filled loops of small bowel and colon suggesting enterocolitis in the proper clinical setting. Scattered diverticulosis coli without evidence of acute diverticulitis. No bowel obstruction is seen. Appendix is normal in caliber. Visualized aorta is normal in caliber. No acute osseous findings. IMPRESSION: 1. Fluid-filled loops of small bowel and colon suggesting enterocolitis in the proper clinical setting. 2. Scattered diverticulosis coli without evidence of acute diverticulitis. No bowel obstruction is seen.
[2024-12-17] MEDS ORDERED: LACT-356 PO (21:48)
[2024-12-17] MEDS ORDERED: PANT40TA55 PO (21:48)
== END 2024-12-17 22:00 | disposition home or self-care (01) ==
LOC: EDH 19:48
DX: A08.4 Viral intestinal infection, unspecified (principal); K57.30 Diverticulosis of large intestine without perforation or abscess without bleeding; Z79.899 Other long term (current) drug therapy; Z88.0 Allergy status to penicillin
CPT/HCPCS: 36415; 74176; 80048; 85025; 99284

== ENCOUNTER 2025-06-10 16:29 | Emergency (ER) | payer SELFPAY ==
[~2025-06-10] VITALS: Ht 165.1 cm; Wt 58.5 kg
[~2025-06-10 16:29] MED LIST changes: +LACT-356 PO; +PANT40TA55 PO
[2025-06-10 17:00] LABS: IMMATURE GRANULOCYTE ABSOLUTE 0.01 K/uL (0-1); NUCLEATED RED BLOOD CELLS 0.0 % (0.0-0.19); PLATELET COUNT (AUTO) 243 K/uL (130-400); RED BLOOD CELL COUNT(AUTO) 4.17 MIL/uL (4.50-6.20); RED CELL DISTRIBUTION WIDTH 13.4 % (11.0-15.5); WHITE BLOOD COUNT (AUTO) 3.5 K/uL (4.8-10.8)
[2025-06-10 17:10] LABS: CREATININE 0.8 mg/dL (0.5-1.3); GLOMERULAR FILTR. RATE CALC 109 mL/min (>90); GLUCOSE,RANDOM 102 mg/dL (70-105); SODIUM SERUM 136 mmol/L (136-145); UREA NITROGEN, BLOOD 5 mg/dL (7-18)
[2025-06-10 17:14] LABS: ALCOHOL, BLOOD 190 mg/dL (0-10)
[2025-06-10] MEDS: 0.9%NACL 1000ML 1,000 ML IV ONE (18:43)
--- NOTE | 2025-06-10 19:28 | ERN ---
General Chief Complaint: Psych Evaluation Stated Complaint: VISUAL/AUDIO HALLUCINATIONS, INSOMNIA Time Seen by MD: 16:31 Time Seen by Midlevel: 16:31 Source: patient History of Present Illness Initial Comments 49-year-old male presents to the emergency department due to visual and auditory hallucinations onset one week. Patient verbalized he is unable to sleep. States he thinks the voices want to hurt him but is unsure of what they are seeing. Denies any SI and HI. PMHx schizophrenia Allergies: Coded Allergies: Penicillins (Unverified Allergy, Unknown, 10/02/21) Home Meds Active Scripts Lactobacillus Acidophilus (Acidophilus Probiotic) 500 Million Cell Capsule, 1 CAP PO BID for 7 Days, #14 CAP 0 Refills Prov:MARY TODD MD 12/17/24 Pantoprazole Sodium (Protonix) 40 Mg Ectab, 1 TAB PO DAILY for 30 Days, #30 TAB 0 Refills Prov:MARY TODD MD 12/17/24 Ibuprofen (Motrin/Advil) 600 Mg Tab, 600 MG PO TIDP PRN for PAIN, #30 TAB Prov:BALBINA LAW MD 09/16/23 Hydroxyzine Pamoate (Hydroxyzine Pamoate) 50 Mg Capsule, 50 MG PO QIDP PRN for ANXIETY/AGITATION, #30 CAP 2 Refills Prov:ROSELYN BUTT Sr., MD 09/16/23 Acetaminophen (Tylenol) 500 Mg Tab, 500 MG PO Q6HPRN PRN for PAIN LEVEL 7 TO 10, #30 TAB Prov:JEOVANY BRADLEY MD 10/01/21 Past Medical History Past Medical History: Anxiety, Schizophrenia Past Surgical History: None Family History Family History: Negative Social History Social History: ETOH ROS Dictation Constitutional: Negative for fever,chills, and weight loss Eyes: Negative for injury, pain,redness, and discharge ENT: Negative for injury,pain or swelling Cardiovascular: Negative for chest pain, palpitations, and edema Respiratory: Negative for shortness of breath, cough, and wheezing, Abdomen/GI: Negative for abdominal pain, nausea, vomiting, diarrhea, and constipation Back: Negative for injury and pain : Negative for painful urination, bleeding or discharge MS/Extremity: Negative for injury and deformity Skin: Negative for rash, and discoloration Neuro: Negative for headache, weakness, numbness, tingling, and seizure Psych: Positive for hallucinations Negative for suicide ideation, homicidal ideation Physical Exam Physical Exam Dictation General: awake, alert, no acute distress Head/Face: Normocephalic, atraumatic Eyes: PERRL, EOMI, normal conjunctiva ENT: oral cavity clear, oral mucosa moist Neck: Supple, normal range of motion Cardiovascular: RRR, normal S1/S2 Respiratory: CTAB, no respiratory distress, no rales or wheezes Abdomen: Soft, non-tender, non-distended, no guarding or rebound. Skin: Warm, dry, normal turgor, no rash MS/Extremity: Pulses equal, no cyanosis, neurovascular intact, FROM Neuro: COAx4, GCS 15, strength 5/5, CN 2-12 intact, normal cerebellar exam, normal gait Psych: Normal behavior, mood, and affect normal Results Laboratory and Microbiology Lab and Micro Result Laboratory Tests Test 06/10/25 16:52 06/10/25 19:33 06/10/25 21:21 White Blood Count 3.5 K/uL (4.8-10.8) L Red Blood Count 4.17 MIL/uL (4.50-6.20) L Hemoglobin 13.3 g/dL (14.0-18.0) L Hematocrit 37.9 % (42-54) L Mean Corpuscular Volume 90.9 fL (79-99) Mean Corpuscular Hemoglobin 31.9 pg (27.0-33.0) Mean Corpuscular Hemoglobin Concent 35.1 g/dL (32.0-36.0) Red Cell Distribution Width 13.4 % (11.0-15.5) Platelet Count 243 K/uL (130-400) Mean Platelet Volume 8.5 fL (7.5-10.5) Immature Granulocyte % (Auto) 0.3 % (0-1) Neutrophils (%) (Auto) 60.7 % (40.0-77.0) Lymphocytes (%) (Auto) 18.8 % (21.0-51.0) L Monocytes (%) (Auto) 16.8 % (3.0-13.0) H Eosinophils (%) (Auto) 1.7 % (0.0-8.0) Basophils (%) (Auto) 1.7 % (0.0-5.0) Neutrophils # (Auto) 2.1 K/uL (1.8-7.7) Lymphocytes # (Auto) 0.7 K/uL (1.0-4.8) L Monocytes # (Auto) 0.6 K/uL (0.1-1.0) Eosinophils # (Auto) 0.06 K/uL (0.00-0.70) Basophils # (Auto) 0.06 K/uL (0.00-0.20) Absolute Immature Granulocyte (auto 0.01 K/uL (0-1) Nucleated Red Blood Cells 0.0 % (0.0-0.19) White Cell Morphology Comment See comments Sodium Level 136 mmol/L (136-145) Potassium Level 3.8 mmol/L (3.5-5.1) Chloride Level 97 mmol/L (101-111) L Carbon Dioxide Level 28 mmol/L (21-32) Blood Urea Nitrogen 5 mg/dL (7-18) L Creatinine 0.8 mg/dL (0.5-1.3) Glomerular Filtration Rate Calc 109 mL/min (>90) Random Glucose 102 mg/dL (70-105) Total Calcium 9.4 mg/dL (8.5-10.1) Salicylates Level < 2.8 mg/dL (2.8-20.0) L Acetaminophen Level < 1 mcg/mL (10-29) L Serum Alcohol 190 mg/dL (0-10) H 77 mg/dL (0-10) H Urine Color LIGHT-YELLOW (YELLOW) Urine Appearance CLEAR (CLEAR) Urine pH 6.0 (5.0-8.0) Urine Specific [place] 1.011 (1.001-1.031) Urine Protein 20 mg/dL (NEGATIVE) H Urine Glucose (UA) NEGATIVE mg/dL (NEGATIVE) Urine Ketones 5 mg/dL (NEGATIVE) H Urine Occult Blood SMALL (NEGATIVE) H Urine Nitrate NEGATIVE (NEGATIVE) Urine Bilirubin NEGATIVE mg/dL (NEGATIVE) Urine Urobilinogen 0.2 mg/dL (0.2-1.0) Urine Leukocyte Esterase NEGATIVE Flip/uL Urine RBC 2-5 /HPF (0-1) H Urine WBC 0-1 /HPF (0-1) Urine Bacteria None /HPF (None Seen) Urine Other Casts 1 /LPF (None Seen) Urine Opiates Screen NEGATIVE (NEGATIVE) Urine Barbiturates Screen NEGATIVE (NEGATIVE) Urine Phencyclidine Screen NEGATIVE (NEGATIVE) Urine Amphetamines Screen NEGATIVE (NEGATIVE) Urine Benzodiazepines Screen NEGATIVE (NEGATIVE) Urine Cocaine Screen NEGATIVE (NEGATIVE) Urine Marijuana (THC) Screen NEGATIVE (NEGATIVE) Labs Reviewed?: Yes MDM MDM: Differential diagnosis: Rationale:49-year-old male presents to the emergency department due to visual and auditory hallucinations onset one week. Patient verbalized he is unable to sleep. States he thinks the voices want to hurt him but is unsure of what they are seeing. Denies any SI and HI. There are no social concerns with this patient. I independently interpreted the test that were performed, results were reviewed by me and considered findings on radiology if ordered. Medical management and examination interpretation discussions were had by me with other qualified healthcare professionals as indicated for the patient's care. ED Course Orders Procedure Category Date Status Time Cbc With Differential LAB 06/10/25 Complete 16:37 Basic Metabolic Panel LAB 06/10/25 Complete 16:37 Urinalysis LAB 06/10/25 Complete W/Microscopic 16:37 Drug Screen Urine LAB 06/10/25 Complete 16:37 Alcohol, Blood LAB 06/10/25 Complete 16:37 Acetaminophen LAB 06/10/25 Complete 16:37 Salicylate LAB 06/10/25 Complete 16:37 0.9%Nacl 1000ml (Ns PHA 06/10/25 Complete 1000ml) 18:30 Alcohol, Blood LAB 06/10/25 Complete 21:15 Current Medications Medications (Trade) Dose Ordered Sig/J Luis Route PRN Reason Start Time Stop Time Status Last Admin Dose Admin Sodium Chloride 1,000 ml @ 0 mls/hr ONCE ONCE IV 06/10/25 18:30 06/10/25 18:31 DC 06/10/25 18:43 Vital Signs Date Time Temp Pulse Resp B/P (MAP) Pulse Ox O2 Delivery O2 Flow Rate FiO2 06/10/25 20:30 97.9 69 18 122/71 99 Room Air* 0 21 06/10/25 18:45 69 18 129/78 98 Room Air* 0 21 06/10/25 16:31 97.9 90 16 148/105 99 Room Air 0 9:45 p.m. patient was signed out to me by the PA This is a 49-year-old male with known history of schizophrenia presented to the emergency room with auditory hallucinations but no suicidal ideations or de lusional behavior. After the routine workup and medically clearing him behavioral health request placed. 11:50 p.m. behavioral health specialist evaluated the patient and indicated to him that he does not meet the criteria for inpatient stabilization and they have cleared him for discharge to home to continue his regular psych medications at home and follow up with PCP DX & DISP Disposition: Discharge Departure Impression: Primary Impression: Auditory hallucinations Additional Impressions: Alcohol dependence, Schizophrenia Condition: Stable Additional Instructions: Patient and the caregiver have been informed of all the diagnostic tests and the imaging conducted during the today's visit to the emergency room and has verbalized understanding of the results I have personally reviewed and interpreted all diagnostic exams performed here in the ER today as well as the vital signs documented by the nursing staff. The patient is now being discharged to home and should follow up with the primary care physician or the specialist as directed by the ER staff. Follow-up with primary care provider in 1 to 2 days. Take medications as directed here in the emergency room. Okay to continue home medications unless otherwise discussed during your visit in the emergency room today. Return to your nearest emergency room if symptoms worsen or if there is no improvement. Call 911 if you need immediate assistance. Take Tylenol or Motrin [id number] as needed and if no contraindications are present. Increase oral hydration. A wound culture or urine culture was ordered here in the emergency room department please follow-up with primary care provider and advise them to get repeat ports from our facility. If you had any Florentin wrap/splints that were applied here, please do not remove them until you see your primary care or specialty. Referrals: ANGELES SIMMONS MD (PCP) JESUS CHURCH Jun 10, 2025 19:28 VIVI MCKOY MD Jun 10, 2025 23:52
[2025-06-10 19:54] LABS: APPEARANCE,URINE CLEAR (CLEAR); GLUCOSE, URINE (UA) NEGATIVE (NEGATIVE); LEUKOCYTE ESTERASE ,URINE NEGATIVE Leu/uL (NEGATIVE); NITRATE,URINE NEGATIVE (NEGATIVE); OCCULT BLOOD,URINE SMALL (NEGATIVE)
[2025-06-10 20:01] LABS: AMPHET/METH SCREEN,URINE NEGATIVE (NEGATIVE); BARBITURATE SCREEN, URINE NEGATIVE (NEGATIVE); CANNABINOID SCREEN,URINE NEGATIVE (NEGATIVE); COCAINE SCREEN,URINE NEGATIVE (NEGATIVE)
[2025-06-10 20:04] LABS: OTHER CASTS, URINE 1 /LPF (None Seen)
--- NOTE | 2025-06-10 20:27 | NUR ---
[facility] CALLED AT THIS TIME, INSTRUCTED BLOOD ALCOHOL LEVEL TO BE BELOW 80 AND CALL BACK WITH REDRAW RESULTS TO SEND SCREENER. SALUD FALLON MADE AWARE AT THIS TIME./MENG
--- NOTE | 2025-06-10 21:47 | NUR ---
[facility] CALLED WITH UPDATE BLOOD ALCOHOL LEVEL. STATES THEY WILL SEND OUT CLOSEST PRODUCTION SUPV SCREENER SOON POSSIBLE.
--- NOTE | 2025-06-10 23:20 | NUR ---
[facility] SCREENER AT BEDSIDE
--- NOTE | 2025-06-10 23:53 | NUR ---
SPOKE TO CHOCO COOK, STATES SHE WILL COME FOR HIM AT DISCHARGE
[2025-06-11] VITALS: BP 117/69; PULSE 69; RESP 18; TEMP 97.9; O2SAT 99
== END 2025-06-11 00:08 | disposition home or self-care (01) ==
LOC: EDH 16:29
DX: R44.0 Auditory hallucinations (principal); F10.20 Alcohol dependence, uncomplicated; F41.9 Anxiety disorder, unspecified; Z79.899 Other long term (current) drug therapy; Z88.0 Allergy status to penicillin
CPT/HCPCS: 99283; 80048; 80305; 85025; 36415; 81001; G0481; J7030

== ENCOUNTER 2025-06-12 03:46 | Emergency (ER) | payer SELFPAY ==
[~2025-06-12] VITALS: Ht 165.1 cm; Wt 56.2 kg
[2025-06-12 05:16] LABS: IMMATURE GRANULOCYTE ABSOLUTE 0.06 K/uL (0-1); NUCLEATED RED BLOOD CELLS 0.0 % (0.0-0.19); PLATELET COUNT (AUTO) 238 K/uL (130-400); RED BLOOD CELL COUNT(AUTO) 4.19 MIL/uL (4.50-6.20); RED CELL DISTRIBUTION WIDTH 12.9 % (11.0-15.5); WHITE BLOOD COUNT (AUTO) 7.2 K/uL (4.8-10.8)
[2025-06-12 05:24] LABS: CREATININE 0.7 mg/dL (0.5-1.3); GLOMERULAR FILTR. RATE CALC 114.0 mL/min (>90); GLUCOSE,RANDOM 167.0 mg/dL (70-105); SODIUM SERUM 134.0 mmol/L (136-145); UREA NITROGEN, BLOOD 12.0 mg/dL (7-18)
[2025-06-12] MEDS: ZIPRASIDONE MESYLATE 20 MG/VIAL IM ONE (05:29)
[2025-06-12 05:44] LABS: CREATINE KINASE, TOTAL 503.0 U/L (21-232)
--- NOTE | 2025-06-12 05:46 | ERN ---
ED Note History of Present Illness Stated Complaint: HALLUCINATIONS Chief Complaint: Halluciations Time Seen by MD: 03:58 Dictation: This is a 49-year-old male who came via EMS for evaluation of hallucinations. Apparently for the past 1-2 weeks patient has been unable to sleep and this particular night when he was attempting to sleep he had visual hallucination and he saw people with lights outside his home he eventually proceeded to go outside claimed the fence and called PD. He denied any suicidal ideations or homicidal ideations he basically keeps saying that he is seeing people and he is just not able to sleep. Patient was seen here 2 days ago and did not qualify for inpatient treatment in the Behavioral Health unit. Temperature 98 pulse 79 respirations 19 blood pressure 168/87 pulse oximetry 99% on room air Patient has chronic medical problems of anxiety, depression, schizophrenia, alcohol abuse Allergies: Coded Allergies: Penicillins (Unverified Allergy, Unknown, 10/02/21) Home Meds Active Scripts Lactobacillus Acidophilus (Acidophilus Probiotic) 500 Million Cell Capsule, 1 CAP PO BID for 7 Days, #14 CAP 0 Refills Prov:MARY TODD MD 12/17/24 Pantoprazole Sodium (Protonix) 40 Mg Ectab, 1 TAB PO DAILY for 30 Days, #30 TAB 0 Refills Prov:MARY TODD MD 12/17/24 Ibuprofen (Motrin/Advil) 600 Mg Tab, 600 MG PO TIDP PRN for PAIN, #30 TAB Prov:BALBINA LAW MD 09/16/23 Hydroxyzine Pamoate (Hydroxyzine Pamoate) 50 Mg Capsule, 50 MG PO QIDP PRN for ANXIETY/AGITATION, #30 CAP 2 Refills Prov:ROSELYN BUTT Sr., MD 09/16/23 Acetaminophen (Tylenol) 500 Mg Tab, 500 MG PO Q6HPRN PRN for PAIN LEVEL 7 TO 10, #30 TAB Prov:JEOVANY BRADLEY MD 10/01/21 Past Medical History Past Medical History: Anxiety, Depression, Schizophrenia Surgical History: Unknown Family History: Negative Social History: ETOH RN Note Reviewed/Agreed w/PFSH: Yes Review of System Dictation Constitutional: Negative for fever,chills, and weight loss Eyes: Negative for injury, pain,redness, and discharge ENT: Negative for injury,pain or swelling Cardiovascular: Negative for chest pain, palpitations, and edema Respiratory: Negative for shortness of breath, cough, and wheezing, Abdomen/GI: Negative for abdominal pain, nausea, vomiting, diarrhea, and constipation Back: Negative for injury and pain : Negative for injury, bleeding and discharge MS/Extremity: Negative for injury and deformity Skin: Negative for rash, and discoloration Neuro: Negative for headache, weakness, numbness, tingling, and seizure Psych: Negative for suicide ideation, homicidal ideation, positive for visual hallucinations. He also is very restless and appears anxious Initial Vital Sign VS Vital Signs Date Time Temp Pulse Resp B/P (MAP) Pulse Ox O2 Delivery O2 Flow Rate FiO2 06/12/25 03:49 98.1 79 19 168/87 99 Room Air 0 06/12/25 04:55 21 Physical Exam Dictation General: awake, alert, NAD patient appears much older than his stated age very thin and emaciated Head/Face: Normocephalic, atraumatic Eyes: PERRL, EOMI, vision at baseline ENT: oral cavity clear, TMs clear, no signs of infection Neck: Trachea midline, supple, no nuchal rigidity Cardiovascular: RRR, normal S1/S2, No MRGs, no JVD Respiratory: CTAB, no respiratory distress, No rales or wheezes Abdomen: Soft, non-tender, non-distended, normal bowel sounds, no guarding or rebound. Skin: Warm, dry, normal turgor, no rash MS/Extremity: Pulses equal, no cyanosis, neurovascular intact, FROM Neuro: COAx4, GCS 15, strength 5/5, CN 2-12 intact, normal cerebellar exam, normal gait, Psych: Patient does not make eye contact, blank stare Extremities-trace edema without any palpable cords, Homans sign is negative Results (Laboratory/Radiology) Laboratory/Radiology Laboratory Tests Test 06/12/25 05:10 06/12/25 07:35 White Blood Count 7.2 K/uL (4.8-10.8) Red Blood Count 4.19 MIL/uL (4.50-6.20) L Hemoglobin 13.5 g/dL (14.0-18.0) L Hematocrit 37.5 % (42-54) L Mean Corpuscular Volume 89.5 fL (79-99) Mean Corpuscular Hemoglobin 32.2 pg (27.0-33.0) Mean Corpuscular Hemoglobin Concent 36.0 g/dL (32.0-36.0) Red Cell Distribution Width 12.9 % (11.0-15.5) Platelet Count 238 K/uL (130-400) Mean Platelet Volume 8.8 fL (7.5-10.5) Immature Granulocyte % (Auto) 0.8 % (0-1) Neutrophils (%) (Auto) 83.0 % (40.0-77.0) H Lymphocytes (%) (Auto) 4.0 % (21.0-51.0) L Monocytes (%) (Auto) 8.7 % (3.0-13.0) Eosinophils (%) (Auto) 3.2 % (0.0-8.0) Basophils (%) (Auto) 0.3 % (0.0-5.0) Neutrophils # (Auto) 6.0 K/uL (1.8-7.7) Lymphocytes # (Auto) 0.3 K/uL (1.0-4.8) L Monocytes # (Auto) 0.6 K/uL (0.1-1.0) Eosinophils # (Auto) 0.23 K/uL (0.00-0.70) Basophils # (Auto) 0.02 K/uL (0.00-0.20) Absolute Immature Granulocyte (auto 0.06 K/uL (0-1) Nucleated Red Blood Cells 0.0 % (0.0-0.19) Sodium Level 134 mmol/L (136-145) L Potassium Level 3.2 mmol/L (3.5-5.1) L Chloride Level 97 mmol/L (101-111) L Carbon Dioxide Level 28 mmol/L (21-32) Blood Urea Nitrogen 12 mg/dL (7-18) Creatinine 0.7 mg/dL (0.5-1.3) Glomerular Filtration Rate Calc 114 mL/min (>90) Random Glucose 167 mg/dL (70-105) H Total Calcium 9.6 mg/dL (8.5-10.1) Total Creatine Kinase 503 U/L (21-232) #*H Troponin I High Sensitivity 6.4 ng/L (4-75) Salicylates Level < 2.8 mg/dL (2.8-20.0) L Acetaminophen Level < 1 mcg/mL (10-29) L Serum Alcohol < 3 mg/dL (0-10) Urine Opiates Screen NEGATIVE (NEGATIVE) Urine Barbiturates Screen NEGATIVE (NEGATIVE) Urine Phencyclidine Screen NEGATIVE (NEGATIVE) Urine Amphetamines Screen NEGATIVE (NEGATIVE) Urine Benzodiazepines Screen NEGATIVE (NEGATIVE) Urine Cocaine Screen NEGATIVE (NEGATIVE) Urine Marijuana (THC) Screen NEGATIVE (NEGATIVE) Labs Reviewed?: Yes EKG Comment: Twelve lead EKG done on 06/12/2025 at 4:58 a.m. showed a heart rate of 64, IA interval 145, QRS duration 88, QT/QTC 403/416 Impression normal sinus rhythm with a LVH very peaked T-waves and suggestion of ST-elevation especially in the septal and lateral leads only. I suspect repolarization changes. EKG rhythm strip-normal sinus rhythm with nonspecific changes. Interpreted by ER MD Dr. Arevalo ED Course ED Course Orders Procedure Category Date Status Time 12 Lead Ekg Tracing- EKG 06/12/25 Resulted Technical 04:59 Cardiac Panel LAB 06/12/25 Complete 05:04 Cbc With Differential LAB 06/12/25 Complete 05:04 Basic Metabolic Panel LAB 06/12/25 Complete 05:04 Ziprasidone Mesylate PHA 06/12/25 Complete (Geodon) 05:30 Water For PHA 06/12/25 Complete Injection,Sterile 05:24 Alcohol, Blood LAB 06/12/25 Complete 06:35 Salicylate LAB 06/12/25 Complete 06:35 Acetaminophen LAB 06/12/25 Complete 06:35 Drug Screen Urine LAB 06/12/25 Complete 06:35 Regular DIET 06/12/25 Complete Breakfast 0.9%Nacl 1000ml (Ns PHA 06/12/25 Complete 1000ml) 08:30 Current Medications Medications (Trade) Dose Ordered Sig/J Luis Route PRN Reason Start Time Stop Time Status Last Admin Dose Admin Sodium Chloride 1,000 ml @ 0 mls/hr ONCE ONCE IV 06/12/25 08:30 06/12/25 08:31 DC 06/12/25 08:51 Sterile Water (Sterile Water, Injection) 10 ml STK-MED ONCE .ROUTE 06/12/25 05:24 06/12/25 05:27 DC Ziprasidone (Geodon) 10 mg ONCE ONCE IM 06/12/25 05:30 06/12/25 05:31 DC 06/12/25 05:29 Vital Signs Date Time Temp Pulse Resp B/P (MAP) Pulse Ox O2 Delivery O2 Flow Rate FiO2 06/12/25 10:57 98.2 59 16 167/85 99 Room Air* 0 06/12/25 07:49 97.0 62 18 130/74 98 Room Air* 0 06/12/25 06:41 56 18 127/72 99 Room Air* 0 06/12/25 04:55 98.2 85 18 156/86 100 Room Air* 0 06/12/25 03:49 98.1 79 19 168/87 99 Room Air 0 We will perform diagnostic labs, and administer medications according to the patient's complaint. Once the results are available, will review and personally interpreted the labs to rule out any acute life-threatening emergency the trach require immediate intervention and treatment. I will then re-evaluate the patient after treatment and diagnostic exams have return to determine whether the patient requires any further testing, can safely be discharged home or need further admission to hospital for additional treatment and evaluation. Norma after reviewing the EKG Reviewed labs CBC is with a normal limits. BNP 7 showed a sodium of 134 potassium 3.2 BUN and creatinine are 12 and 0.7. Troponins are negative total CK 503. Serum tox screen and urine drug screen are pending--which was eventually reported as completely normal Patient on multiple occasions this week was deemed not a candidate for inpatient treatment by behavioral health screeners. I transitioned the care to the a.m. physician Patient cleared for discharge to home Medical Decision Making MDM CC: hallucinations comorbidities: mental health disease, substance abuse VSS labs stable. medically cleared. Evaluated by [facility], no indication for inpatient services Patient discharged. Problem List Problem List: (1) Schizophrenia (2) Acute psychosis DX & DISP Disposition: Discharge Departure Impression: Primary Impression: Schizophrenia Additional Impression: Acute psychosis Condition: Stable Additional Instructions: Please follow up with [facility] today. Referrals: ANGELES SIMMONS MD (PCP) VIVI AREVALO MD Jun 12, 2025 05:46 KAMALA WADDELL DO Jun 12, 2025 10:48
[2025-06-12 07:14] LABS: ALCOHOL, BLOOD < 3 mg/dL (0-10)
--- NOTE | 2025-06-12 07:22 | EKG ---
[facility] Test Date: 2025-06-12 Test Time: 04:58:50 Pat Name: HOOD COOK Department: ED Room: Gender: M Claim Manager: [id number] : 1975 Requested By: VIVI MCKOY Order Number: [id number] Reading MD: Konrad Williamson Measurements Intervals [place] Rate: 64 P: 26 SC: 145 QRS: 62 QRSD: 88 T: 30 QT: 403 QTc: 416 Interpretive Statements Sinus rhythm Consider left ventricular hypertrophy ST elevation, consider anterior injury vs early repolarization Compared to ECG 12/17/2022 13:52:53 ST (T wave) deviation now present Myocardial infarct finding now present Electronically Signed On 06-12-2025 19:00:02 CDT by Konrad Williamson Please click the below link to view image of tracing.
--- NOTE | 2025-06-12 07:37 | NUR ---
AT THIS TIME, DENIES SUICIDAL OR HOMICIDAL IDEATION. DENIES ANY FORM OF HALLUCINATIONS. DENIES ANY DISCOMFORT.
[2025-06-12 07:56] LABS: AMPHET/METH SCREEN,URINE NEGATIVE (NEGATIVE); BARBITURATE SCREEN, URINE NEGATIVE (NEGATIVE); CANNABINOID SCREEN,URINE NEGATIVE (NEGATIVE); COCAINE SCREEN,URINE NEGATIVE (NEGATIVE)
--- NOTE | 2025-06-12 08:22 | NUR ---
[facility] CONTACTED FOR SCREENER.
[2025-06-12] MEDS: 0.9%NACL 1000ML 1,000 ML IV ONE (08:51)
--- NOTE | 2025-06-12 09:42 | NUR ---
[facility] SCREENER AT BEDSIDE
--- NOTE | 2025-06-12 10:47 | NUR ---
CLEARED FOR DISCHARGE BY [facility] SCREENER. DR KAMALA WADDELL MADE AWARE. DAUGHTER TO PROVIDE TRANSPORT FOR PATIENT TO [facility]. REPORT TO BE SENT TO CHILD PSYCHOMETRIST MARIN FISHMAN.
[2025-06-12 10:57] VITALS: BP 167/85; PULSE 59; RESP 16; TEMP 98.3; O2SAT 99
--- NOTE | 2025-06-12 11:02 | NUR ---
DISCHARGED UNDER THE CARE OF DAUGHTER VÍCTOR. VERBAL AND WRITTEN INSTRUCTIONS PROVIDED.
== END 2025-06-12 11:02 | disposition home or self-care (01) ==
LOC: EDH 03:46
DX: F20.9 Schizophrenia, unspecified (principal); F28 Other psychotic disorder not due to a substance or known physiological condition; F41.9 Anxiety disorder, unspecified; Z79.899 Other long term (current) drug therapy; Z88.0 Allergy status to penicillin
CPT/HCPCS: 99285; 82550; 84484; 80048; 80305; 85025; 36415; 96372; 93005; G0481; J3486